=== PATIENT | male | born 1980 | race Caucasian/White ===

== ENCOUNTER 2020-08-22 21:10 | Emergency (ER) | payer OTHER ==
[2020-08-22 21:27] VITALS: BP 148/86
--- NOTE | 2020-08-22 21:36 | ER Document Report ---
ED Medical Screen (RME) - General Chief Complaint: Fall Stated Complaint: FALL IN BATHTUB/ETOH/BACK PAIN Time Seen by Provider: 08/22/20 21:25 Notes: Patient states that he had been drinking tonight and slipped in the bathtub. Patient reports hitting his back on the edge of the bathtub. Patient denies any head injury or loss of consciousness. Patient states fall occurred just prior to arrival. Patient was stumbling gait in triage. I have greeted and performed a rapid initial assessment of this patient. A comprehensive ED assessment and evaluation of the patient, analysis of test results and completion of the medical decision making process will be conducted by additional ED providers. Physical Exam - Vital signs Vitals: Temp Pulse Resp BP Pulse Ox 98.4 F 92 16 148/86 H 96 08/22/20 21:25 08/22/20 21:25 08/22/20 21:25 08/22/20 21:25 08/22/20 21:25 - General General appearance: Alert Notes: Stumbling gait, breath sounds clear bilaterally, no ecchymosis noted to back, patient with lower thoracic back pain and paraspinal tenderness Course - Vital Signs Vital signs: Temp Pulse Resp BP Pulse Ox 98.4 F 92 16 148/86 H 96 08/22/20 21:25 08/22/20 21:25 08/22/20 21:25 08/22/20 21:25 08/22/20 21:25
--- NOTE | 2020-08-22 22:17 | RADIOLOGY REPORT (SQ) ---
EXAM DESCRIPTION: XR CHEST 1 VIEW COMPLETED DATE/TME: 08/22/2020 21:32 CLINICAL HISTORY: 40 years, Male, fall, thoracic back pain COMPARISON: None. NUMBER OF VIEWS: One TECHNIQUE: Single frontal view of the chest was obtained LIMITATIONS: None. FINDINGS: Cardiac and mediastinal contours are normal. Lungs are clear. No pleural effusion or pneumothorax. IMPRESSION: No acute disease. copyright 2010 [employer]- All Rights Reserved
--- NOTE | 2020-08-22 22:19 | RADIOLOGY REPORT (SQ) ---
EXAM DESCRIPTION: XR THORACIC SPINE 2 VIEWS COMPLETED DATE/TME: 08/22/2020 21:30 CLINICAL HISTORY: 40 years, Male, fall, back pain COMPARISON: None. NUMBER OF VIEWS: 2 TECHNIQUE: Frontal and lateral radiograph of the thoracic spine were acquired. LIMITATIONS: None. FINDINGS: Thoracic vertebral body heights and alignments are maintained. Intervertebral disc spaces are overall well-maintained. No acute fracture or malalignment is appreciated. Visualized portions of the lungs are clear. IMPRESSION: No osseous anomaly. copyright 2010 [employer]- All Rights Reserved
[2020-08-22 23:30] LABS: APPEARANCE,URINE CLEAR; BILIRUBIN,URINE NEGATIVE (NEGATIVE); COLOR,URINE COLORLESS; GLUCOSE, URINE NEGATIVE (NEGATIVE); KETONES,URINE NEGATIVE (NEGATIVE); LEUKOCYTE ESTERASE,URINE NEGATIVE (NEGATIVE); NITRITE,URINE NEGATIVE (NEGATIVE); PROTEIN,URINE NEGATIVE (NEGATIVE); URINE SPECIFIC GRAVITY 1.001; UROBILINOGEN,URINE NEGATIVE mg/dL (<2.0)
--- NOTE | 2020-08-22 23:43 | RADIOLOGY REPORT (SQ) ---
INDICATION: fall, gait abnormal, +ETOH. Pain COMPARISON: None CORRELATION: None TECHNIQUE: Noncontrast spiral axial CT images were obtained from the skull base to vertex. Noncontrast spiral axial CT imaging through the cervical spine with multiplanar reconstructions. This exam was performed according to our departmental dose-optimization program, which includes automated exposure control, adjustment of the mA and/or kV according to patient size and/or use of iterative reconstruction techniques. FINDINGS: BRAIN: There is no evidence of acute intracranial hemorrhage, midline shift, mass effect or mass lesion. [place]-white differentiation is normal. There is no evidence of acute large territory infarct. Ventricles and extracerebral spaces are within normal limits, for age. The visualized paranasal sinuses are grossly clear. The orbits and eyeballs are unremarkable. The mastoid air cells are clear. Skull base and calvarium appear intact. CERVICAL SPINE: No acute displaced fracture is identified of the cervical spine. Alignment is anatomic. No focal alignment abnormality is identified. The uncovertebral joints and facets are within normal limits, for age. Surrounding soft tissues of the neck are unremarkable. IMPRESSION: No acute intracranial process is identified. No acute bony injury is seen to the cervical spine.
== END 2020-08-23 04:00 | disposition left against medical advice (07) ==
LOC: ER 21:10
DX: M54.9 Dorsalgia, unspecified (principal); W18.2XXA Fall in (into) shower or empty bathtub, initial encounter; R26.89 Other abnormalities of gait and mobility; Z53.20 Procedure and treatment not carried out because of patient's decision for unspecified reasons
CPT/HCPCS: 70450; 71045; 72070; 72125; 81001; 99281